=== PATIENT | male | born 1960 | race Two or more races ===

== ENCOUNTER 2018-06-01 23:55 | Emergency (ER) ==
[2018-06-02] MEDS ORDERED: DILAUDID 0.5 MG/0.5 ML SYRINGE IVP STA (00:03)
[2018-06-02] MEDS ORDERED: SODIUM CHLORIDE 1,000 ML IV STA (00:03)
[2018-06-02] MEDS ORDERED: ZOFRAN 4 MG/2 ML IVP STA (00:04)
[2018-06-02 00:42] VITALS: BMI 24.3
--- NOTE | 2018-06-02 01:04 | CT ---
Exam: CT of the abdomen and pelvis without contrast History: Abdominal pain Technique: [address] of the abdomen and pelvis without intravascular contrast FINDINGS: The lung bases are clear. Heart size hiatus hernia. The liver, gallbladder, pancreas, sp cyndi and adrenal glands appear normal. Kidneys and proximal collecting system are unremarkable. Fluid distension of the lower abdomen small intestine measuring up to 2.8 cm diameter. No obstructive tra nsition is seen. The appendix is not seen. No inflammation of the mesentery or retroperitoneum. At herosclerotic calcification of the aorta without aneurysm. Pelvic genitourinary structures appear normal. A few sigmoid colonic diverticula. No evidence of acu te diverticulitis. No inflammatory change in the pelvic fat. No acute abnormality of the abdominal or pelvic skeleton. Chronic-appearing L1 wedge deformity. Impression: 1. Mild fluid distension of small intestine loops in the lower abdomen. No obstructive transition i s seen. Small bowel obstruction is considered but not favored. Correlate with clinical symptoms. 2. No inflammatory changes of the abdomen or pelvis 3. A few sigmoid colonic diverticula. 4. Moderate size hiatus hernia
--- NOTE | 2018-06-02 02:39 | ED.PDOC ---
General ED Provider: Dr. MARCOS SHARMA-ER Chief Complaint: Abdominal Pain Stated Complaint: im hurting--i think i have divertulitis Time Seen by Physician: 00:15 Mode of Arrival: Ambulance Information Source: Patient, EMT Exam Limitations: No limitations Nursing and Triage Documentation Reviewed and Agree: Yes Does patient meet sepsis criteria?: No System Inflammatory Response Syndrome: Not Applicable Sepsis Protocol: For patient's 13 years and over: Temp is 96.8 and below OR 101 and greater Pulse >90 BPM Resp >20/minute Acutely Altered Mental Status Are patient's symptoms suggestive of a new infection, such as: -Pneumonia -Skin, Soft Tissue -Endocarditis -UTI -Bone, Joint Infection -Implantable Device -Acute Abdominal Infection -Wound Infection -Meningitis -Blood Stream Catheter Infection -Unknown GI Complaint Exam - Abdominal Pain Complaint/Exam Onset: Gradual Duration: several hours Symptoms Are: Still present Timing: Constant Initial Severity: Mild Current Severity: Moderate Location of Pain: Diffuse Character: Reports: Dull, Aching Aggravating: Reports: None Abdominal Findings: Present: None Rectal Exam: Present: Normal Findings Differential Diagnoses: Bowel Obstruction, Constipation, Diverticulitis, Pancreatitis Quality Indicators for Cardiac Chest Pain: EKG in 10min. Review of Systems - Review Of Systems Constitutional: Reports: No symptoms Eyes: Reports: No symptoms Ears, Nose, Mouth, Throat: Reports: No symptoms Respiratory: Reports: No symptoms Cardiac: Reports: No symptoms GI: Reports: Abdominal pain : Reports: No symptoms Musculoskeletal: Reports: No symptoms Skin: Reports: No symptoms Neurological: Reports: No symptoms Endocrine: Reports: No symptoms Hematologic/Lymphatic: Reports: No symptoms All Other Systems: Reviewed and Negative Past Medical History - Past Medical History Previously Healthy: Yes Endocrine: Reports: Unknown Cardiovascular: Reports: Unknown Respiratory: Reports: Unknown Hematological: Reports: Unknown Gastrointestinal: Reports: Unknown Genitourinary: Reports: Unknown Neuro/Psych: Reports: Unknown Musculoskeletal: Reports: Unknown Cancer: Reports: Unknown - Surgical History General Surgical History: Reports: Unknown - Family History Family History: Reports: Unknown - Social History Smoking Status: Current every day smoker, Heavy tobacco smoker Hx Substance Use: No Alcohol Screening: Occasionally - Immunizations Tetanus Shot up to Date: Yes Physical Exam - Physical Exam Appearance: Well-appearing, No pain distress, Well-nourished Pain Distress: Mild Eyes: [place] ENT: Ears normal, Nose normal, Oropharynx normal Neck: Supple Respiratory: Airway patent Cardiovascular: RRR GI/: Soft, Nontender, No masses, Bowel sounds normal, No Organomegaly Musculoskeletal: Normal strength, ROM intact, No edema, No calf tenderness Skin: Warm Neurological: Sensation intact Psychiatric: Affect appropriate, Mood appropriate Interpretation - Radiology Interpretation Radiology Interpretation By: Radiologist Radiology Results: Negative Exam Interpreted: CT Scan - EKG Interpretation Time of EKG #1: 00:45 Rate: Normal Rhythm: Sinus Ectopy: None [place]: NL ST Segment: Normal Interpretation: nsr Critical Care Note - Critical Care Note Total Time (mins): 0 Course - Course Hematology/Chemistry: 06/02/18 00:10 06/02/18 00:10 Orders, Labs, Meds: Lab Review 06/02/18 06/02/18 06/02/18 00:10 00:10 00:10 WBC 9.62 RBC 5.17 Hgb 8.6 L Hct 31.8 L MCV 61.5 L MCH 16.6 L MCHC 27.0 L RDW Coeff of [place]restes 19.9 H Plt Count 433 Immature Gran % (Auto) 0.3 Neut % (Auto) 77.4 Lymph % (Auto) 15.1 [place] % (Auto) 6.8 Eos % (Auto) 0.2 Baso % (Auto) 0.2 Immature Gran # (Auto) 0.0 Neut # (Auto) 7.5 H Lymph # (Auto) 1.5 [place] # (Auto) 0.7 Eos # (Auto) 0.0 Baso # (Auto) 0.0 Hypochromasia 1+ Anisocytosis Not present Microcytosis 2+ ESR 7 Sodium 133 L Potassium 3.5 Chloride 101 Carbon Dioxide 21 Anion Gap 14.5 BUN 7 Creatinine 0.79 Estimated GFR (MDRD) 101.00 BUN/Creatinine Ratio 8.86 Glucose 133 H Calcium 8.8 Total Bilirubin 0.7 AST 13 L ALT 10 L Alkaline Phosphatase 93 Total Creatine Kinase 106 Troponin I 0.0140 Total Protein 7.2 Albumin 3.4 Globulin 3.8 Albumin/Globulin Ratio 0.89 Amylase 71 Lipase 12 Urine Color Urine Clarity Urine pH Ur Specific [place] Urine Protein Urine Glucose (UA) Urine Ketones Urine Blood Urine Nitrite Urine Bilirubin Urine Urobilinogen Ur Leukocyte Esterase Urine Microscopic WBC Ur Squamous Epith Cells Urine Bacteria Hyaline Casts Urine Mucus Stl Occult Blood (IFOB) Stool Occult Blood #2 Stool Occult Blood #3 06/02/18 06/02/18 01:46 02:36 WBC RBC Hgb Hct MCV MCH MCHC RDW Coeff of [place] Plt Count Immature Gran % (Auto) Neut % (Auto) Lymph % (Auto) [place] % (Auto) Eos % (Auto) Baso % (Auto) Immature Gran # (Auto) Neut # (Auto) Lymph # (Auto) [place] # (Auto) Eos # (Auto) Baso # (Auto) Hypochromasia Anisocytosis Microcytosis ESR Sodium Potassium Chloride Carbon Dioxide Anion Gap BUN Creatinine Estimated GFR (MDRD) BUN/Creatinine Ratio Glucose Calcium Total Bilirubin AST ALT Alkaline Phosphatase Total Creatine Kinase Troponin I Total Protein Albumin Globulin Albumin/Globulin Ratio Amylase Lipase Urine Color Dark Urine Clarity Clear Urine pH 6.0 Ur Specific [place] 1.025 Urine Protein 2+ Urine Glucose (UA) Negative Urine Ketones 2+ Urine Blood Negative Urine Nitrite Negative Urine Bilirubin 1+ Urine Urobilinogen 0.2 Ur Leukocyte Esterase Negative Urine Microscopic WBC 2-5 Ur Squamous Epith Cells 2-5 Urine Bacteria Trace Hyaline Casts 2-5 Urine Mucus 2+ Stl Occult Blood (IFOB) Negative Stool Occult Blood #2 Pending Stool Occult Blood #3 Pending Orders Category Date Time Status EKG-(ED ONLY) Stat CARDIO 06/02/18 00:02 Ordered IV [ED IV/MEDIPORT/POWERPORT] .ONCE EMERGENCY 06/02/18 00:03 Active AMYLASE Stat LAB 06/02/18 00:10 Completed CBC W/ AUTO DIFF Stat LAB 06/02/18 00:10 Completed COMPREHENSIVE METABOLIC PANEL Stat LAB 06/02/18 00:10 Completed CREATINE KINASE Stat LAB 06/02/18 00:10 Completed ESR Stat LAB 06/02/18 00:10 Completed FERRITIN Stat LAB 06/02/18 00:15 Received IRON AND TIBC Stat LAB 06/02/18 00:15 Received LIPASE Stat LAB 06/02/18 00:10 Completed OCCULT BLOOD, STOOL Stat LAB 06/02/18 02:36 Results RBC MORPHOLOGY Stat LAB 06/02/18 00:10 Completed TROPONIN I Stat LAB 06/02/18 00:10 Completed URINALYSIS C & S IF INDICATED Stat LAB 06/02/18 01:46 Completed VITAMIN B12 Stat LAB 06/02/18 00:15 Received 0.9 % Sodium Chloride [Saline Flush] MEDS 06/02/18 00:03 Ordered 1 syr IVF PRN PRN Hydromorphone HCl [Dilaudid 0.5 mg/0.5 ml Syringe] MEDS 06/02/18 00:03 Discontinued 1 mg IVP ONCE STA Ondansetron HCl/Pf [Zofran 4 mg/2 ml] MEDS 06/02/18 00:04 Discontinued 4 mg IVP ONCE STA Sodium Chloride 0.9% [Sodium Chloride] 1,000 ml MEDS 06/02/18 00:03 Active IV 100 mls/hr CT ABDOMEN/PELVIS WO CONTRAST Stat RADS 06/02/18 00:03 Completed Medications Generic Name Dose Route Start Last Admin Trade Name Freq PRN Reason Stop Dose Admin Sodium Chloride 1,000 mls @ 100 mls/hr 06/02/18 00:03 06/02/18 00:16 Sodium Chloride IV 06/02/18 10:02 100 mls/hr .Q10H STA Administration Sodium Chloride 1 syr 06/02/18 00:03 Saline Flush IVF PRN PRN To flush IV Discontinued Medications Generic Name Dose Route Start Last Admin Trade Name Freq PRN Reason Stop Dose Admin Hydromorphone HCl 1 mg 06/02/18 00:03 06/02/18 00:15 Dilaudid 0.5 Mg/0.5 Ml Syringe IVP 06/02/18 00:04 1 mg ONCE STA Administration Ondansetron HCl 4 mg 06/02/18 00:04 06/02/18 00:16 Zofran 4 Mg/2 Ml IVP 06/02/18 00:05 4 mg ONCE STA Administration Mr Hinkle says he had colonoscopy last year in [place] and it was normal according to him. Vital Signs: Temp Pulse Resp BP Pulse Ox 06/02/18 03:01 97.7 F 63 18 128/63 99 06/02/18 00:12 97.9 F 77 20 94/67 99 mr hinkle denies any melanotic stools and this am his stool is chris colored and heme negative Departure - Departure Time of Disposition: 02:54 Disposition: HOME SELF-CARE Discharge Problem: Abdominal pain Anemia Qualifiers: Anemia type: unspecified type Qualified Code(s): D64.9 - Anemia, unspecified Instructions: Anemia (ED) Condition: Good Pt referred to PMD for follow-up: No IPMP verified?: No Additional Instructions: librax q 8hrs prn pain #21--pepcid 40mg #30---low fat diet----see md to get gb studies and to follow up on anemia studies Allergies/Adverse Reactions: Allergies No Known Allergies Allergy (Unverified 01/16/18 09:33) Home Medications: Ambulatory Orders Aspirin 81 mg PO ONCE 01/16/18 Omeprazole Magnesium [Prilosec Otc] 20 mg PO DAILY 01/16/18 Disposition Discussed With: Patient, Family
[2018-06-02 03:02] VITALS: BP 128/63; TEMP 97.7
== END 2018-06-02 03:05 | disposition home or self-care (01) ==
LOC: ED 23:55
DX: R10.9 Unspecified abdominal pain (principal); D64.9 Anemia, unspecified; F17.210 Nicotine dependence, cigarettes, uncomplicated
CPT/HCPCS: 36415; 80053; 81001; 82150; 82272; 82550; 82607; 82728; 83540; 83550; 83690; 84484; 85008; 85025; 85651; 93005; 93010; 96361; 96365; 96374; 96375; 99284

== ENCOUNTER 2018-06-08 15:17 | Outpatient (CLI) | END 2018-06-08 15:18 | disposition home or self-care (01) | LOC: RHC-LAB 15:17 | PROVIDERS: ATTEND Emergency Medicine | DX: K21.9 Gastro-esophageal reflux disease without esophagitis (principal); D50.8 Other iron deficiency anemias; E78.5 Hyperlipidemia, unspecified; Z12.5 Encounter for screening for malignant neoplasm of prostate | CPT/HCPCS: 36415; 80061; 84443; 85008; 85025 ==